=== PATIENT | male | born 1985 | race Caucasian/White ===

== ENCOUNTER 2020-09-12 11:22 | Emergency (ER) | payer OTHER ==
[~2020-09-12] VITALS: Ht 190.5 cm; Wt 90.9 kg
[2020-09-12 11:35] VITALS: PULSE 89; TEMP 98
[2020-09-12 12:25] LABS: COLLECTION METHOD CLEAN CATCH
[2020-09-12] MEDS ORDERED: OMNICEF 300MG300 MG PO (12:31)
[2020-09-12 12:34] LABS: PH 6 (5-8); SQUAMOUS EPITHELIAL None Seen /hpf; URINE APPEARANCE Clear; URINE BACTERIA None Seen /hpf; URINE BILIRUBIN Negative (NEGATIVE); URINE BLOOD Negative (NEGATIVE); URINE COLOR Yellow; URINE GLUCOSE Negative (NEGATIVE); URINE KETONE Negative (NEGATIVE); URINE LEUKOCYTE ESTERASE Trace (NEGATIVE); URINE NITRATE Negative (NEGATIVE); URINE PROTEIN(semi-quant) Negative (NEGATIVE); URINE RBC 0-2 /hpf; URINE UROBILINOGEN Negative (NEGATIVE)
[2020-09-13] MEDS ORDERED: DOXYCYCLINE 10100 MG PO (16:25)
== END 2020-09-12 13:17 | disposition home or self-care (01) ==
LOC: COL.ER 11:22
PROVIDERS: Family Medicine
DX: N30.00 Acute cystitis without hematuria (principal)
CPT/HCPCS: J0696

== ENCOUNTER 2020-09-15 07:17 | Emergency (ER) | payer OTHER ==
[~2020-09-15] VITALS: Ht 190.5 cm; Wt 90.9 kg
[~2020-09-15 07:17] MED LIST: DOXYCYCLINE 10100 MG PO; OMNICEF 300MG300 MG PO
[2020-09-15 07:26] VITALS: TEMP 98.4
[2020-09-15] MEDS ORDERED: NEXIUM 20MG20 MG PO (07:31)
[2020-09-15] MEDS ORDERED: ALLEGRA 180MG180 MG PO (07:31)
[2020-09-15 07:56] LABS: BASO % 0.2 % (0.0-2.0); EOS # 0.1 (0.0-0.7); EOS % 0.5 % (0-4.0); GRAN # 14.5 (1.4-6.5); GRAN % 81.9 % (42.2-75.2); HEMATOCRIT 45.7 % (42.0-52.0); HEMOGLOBIN 14.5 g/dl (13.5-18.0); LYMPH # 1.8 (1.2-3.4); LYMPH % 9.9 % (20.0-51.0); MEAN CELL VOLUME 83 fl (80.0-100.0); MEAN CORPUSCULAR HEMOGLOBIN 26 pg (27.0-31.0); MEAN CORPUSCULAR HGB CONC 32 g/dl (33.0-37.0); MEAN PLATELET VOLUME 9.3 fl (7.4-10.4); MONO # 1.3 (0.1-0.6); MONO % 7.1 % (1.7-9.3); PLATELET COUNT 249 K/mm3 (130-400); RED BLOOD COUNT 5.51 M/mm3 (4.20-5.60); REDCELL DISTRIBUTION WIDTH-CV 12.7 % (11.5-14.5)
[2020-09-15 08:04] LABS: ALBUMIN 4.4 gm/dL (3.5-5.0); BILIRUBIN,TOTAL 0.6 mg/dL (0.0-1.0); CALCIUM 9.4 mg/dL (8.4-10.2); CREATININE, serum 0.95 (0.66-1.25); POTASSIUM 3.9 mmol/L (3.4-5.0); TOTAL PROTEIN 7.7 gm/dL (6.4-8.2)
[2020-09-15] MEDS ORDERED: LEVAQUIN 5500 MG/TA1 PO (09:25)
[2020-09-15 10:04] VITALS: BP 116/65; PULSE 94
== END 2020-09-15 10:04 | disposition home or self-care (01) ==
LOC: COL.ER 07:17
PROVIDERS: Family Medicine
DX: J16.0 Chlamydial pneumonia (principal); N30.00 Acute cystitis without hematuria; D72.829 Elevated white blood cell count, unspecified; K21.9 Gastro-esophageal reflux disease without esophagitis; F17.290 Nicotine dependence, other tobacco product, uncomplicated; Z90.89 Acquired absence of other organs; Z20.822 Contact with and (suspected) exposure to COVID-19; Z79.899 Other long term (current) drug therapy
CPT/HCPCS: J0696; J7120

== ENCOUNTER 2021-10-22 12:35 | Emergency (ER) | payer OTHER ==
[~2021-10-22] VITALS: Ht 190.5 cm; Wt 97.7 kg
[~2021-10-22 12:35] MED LIST changes: +ALLEGRA 180MG180 MG PO; +LEVAQUIN 5500 MG/TA1 PO; +NEXIUM 20MG20 MG PO
[2021-10-22 13:26] VITALS: TEMP 98
[2021-10-22 14:52] VITALS: BP 142/82; PULSE 76
== END 2021-10-22 14:53 | disposition home or self-care (01) ==
LOC: COL.ER 12:35
DX: T22.112A Burn of first degree of left forearm, initial encounter (principal); Z28.310 Unvaccinated for COVID-19; X12.XXXA Contact with other hot fluids, initial encounter; Y92.59 Other trade areas as the place of occurrence of the external cause; Y99.0 Civilian activity done for income or pay